=== PATIENT | female | born 1995 | race Caucasian/White ===

== ENCOUNTER 2020-06-20 18:31 | Observation (INO) | payer BC ==
[~2020-06-20] VITALS: Ht 162.6 cm; Wt 94.8 kg
[2020-06-20 19:51] LABS: URINE HCG NEGATIVE (NEG)
[2020-06-20 19:52] LABS: CLARITY,URINE SLIGHTLY CLOUDY (Clear); COLOR,URINE YELLOW (Yellow); GLUCOSE, URINE NEGATIVE (Neg); KETONES,URINE 40 mg/dl (Neg); LEUKOCYTE ESTERASE ,URINE NEGATIVE (Neg); NITRITES, URINE NEGATIVE (Neg); OCCULT BLOOD,URINE NEGATIVE (Neg); PROTEIN,URINE NEGATIVE (Neg); UROBILINOGEN,URINE 0.2 E.U/dL (0.2-1.0)
[2020-06-20 19:58] LABS: UA COLLECTION TYPE CLN CATCH MIDSTREAM
[2020-06-20 19:59] LABS: BACTERIA,URINE FEW /HPF (Neg); RBC,URINE NONE SEEN /HPF (0-2); SQUAMOUS EPITHELIAL CELL,UR MANY /LPF (FEW); WBC,URINE 0-4 /HPF (0-4)
[2020-06-20] MEDS ORDERED: normal saline 1000ml 1,000 ML IV ONE (23:25)
[2020-06-20] MEDS ORDERED: ondansetron/PF 4mg/2ml inj IV ONE (23:25)
[2020-06-20] MEDS ORDERED: morphine 10mg/ml inj. IV ONE (23:25)
[2020-06-20 23:45] LABS: EOSINOPHILS % (AUTO) 0 % (0-6); HEMOGLOBIN 10.7 g/dl (12.0-16.0); MEAN CORPUSCULAR VOLUME 71.6 FL (78-98); MONOCYTES # (AUTO) 0.3 X10'3 (0-0.9); MONOCYTES % (AUTO) 1.9 % (2-12); RED CELL DISTRIBUTION WIDTH 17.8 % (11.5-14.5); WHITE BLOOD COUNT 16.1 X10'3 (4.5-11.0)
[2020-06-20 23:47] LABS: BASOPHILS % (AUTO) 0.3 % (0-1); HEMATOCRIT 33.7 % (35.0-45.0); LYMPHOCYTES # (AUTO) 1.6 X10'3 (1.1-4.8); MEAN CORPUSCULAR HEMOGLOBIN 22.7 PG (27.0-31.0); MEAN CORPUSCULAR HGB CONC 31.7 g/dL (33.0-36.5); MEAN PLATELET VOLUME 7.5 FL (7.4-10.4); NEUTROPHILS # (AUTO) 14.1 X10'3 (1.8-7.7); NEUTROPHILS % (AUTO) 87.8 % (42-75); PLATELET COUNT 460 X10'3 (140-440)
[2020-06-20 23:52] LABS: ANION GAP 12 (8-16); BLOOD UREA NITROGEN 16 MG/DL (7-18); BUN/CREATININE RATIO 10.3 (6.6-38.0); CALCIUM 8.9 MG/DL (8.5-10.1); CHLORIDE 102 MMOL/L (99-107); CREATININE 1.55 MG/DL (0.40-0.90); GLUCOSE 124 MG/DL (70-104); POTASSIUM 4.4 MMOL/L (3.5-5.1); SODIUM 137 MMOL/L (135-145); TOTAL CARBON DIOXIDE 23.2 MMOL/L (24-32); eGFR 41 ML/MIN
[2020-06-20] MEDS ORDERED: iohexol 300mg/ml 100ml inj. ONE (23:54)
[2020-06-21] MEDS ORDERED: morphine 10mg/ml inj. IV ONE (00:40)
[2020-06-21] MEDS ORDERED: tamsulosin 0.4mg capsule PO SCH ×2 (01:25→21:00)
[2020-06-21] MEDS ORDERED: NO HOME MEDS (01:34)
[2020-06-21] MEDS ORDERED: potassium Cl 20 mEq SR tablet PO PRN ×2 (02:25)
[2020-06-21] MEDS ORDERED: ondansetron/PF 4mg/2ml inj IV PRN (02:25)
[2020-06-21] MEDS ORDERED: morphine 2 MG/ML inj. syringe IV PRN (02:25)
[2020-06-21] MEDS ORDERED: CefTRIAXone/D5W-Rocephin 1gm 50 ML IV ONE (02:25)
[2020-06-21] MEDS ORDERED: potassium Cl 40MEQ/1/2NS 520ml 520 ML IV PRN ×2 (02:25)
[2020-06-21 03:30] VITALS: BP 136/75
[2020-06-21] MEDS: normal saline 1000ml 1,000 ML IV SCH ×2 (04:04→12:25)
--- NOTE | 2020-06-21 06:31 | NUR ---
Patient in room [facility]. I have received report from SEVERIANO MARTINEZ and had the opportunity to ask questions and assume patient care.
[2020-06-21 07:00] VITALS: BP 121/62
[2020-06-21] MEDS ORDERED: K and/or MAG REPLACEMENT MC SCH (08:00)
[2020-06-21 10:57] LABS: BASOPHILS # (AUTO) 0.1 X10'3 (0-0.2); BASOPHILS % (AUTO) 0.8 % (0-1); EOSINOPHILS % (AUTO) 0.3 % (0-6); HEMATOCRIT 32.7 % (35.0-45.0); HEMOGLOBIN 10.2 g/dl (12.0-16.0); LYMPHOCYTES # (AUTO) 4.1 X10'3 (1.1-4.8); LYMPHOCYTES % (AUTO) 32.8 % (21-51); MEAN CORPUSCULAR HEMOGLOBIN 22.4 PG (27.0-31.0); MEAN CORPUSCULAR HGB CONC 31.3 g/dL (33.0-36.5); MEAN CORPUSCULAR VOLUME 71.6 FL (78-98); MEAN PLATELET VOLUME 7.3 FL (7.4-10.4); MONOCYTES # (AUTO) 0.9 X10'3 (0-0.9); MONOCYTES % (AUTO) 7.4 % (2-12); NEUTROPHILS # (AUTO) 7.4 X10'3 (1.8-7.7); NEUTROPHILS % (AUTO) 58.7 % (42-75); PLATELET COUNT 427 X10'3 (140-440); RED BLOOD COUNT 4.56 X10'6 (4.20-5.60); WHITE BLOOD COUNT 12.6 X10'3 (4.5-11.0)
[2020-06-21 11:00] VITALS: BP 131/70
[2020-06-21 11:03] LABS: ALBUMIN 3.7 G/DL (3.4-5.0); ANION GAP 9 (8-16); BLOOD UREA NITROGEN 11 MG/DL (7-18); BUN/CREATININE RATIO 9.7 (6.6-38.0); CALCIUM 8.5 MG/DL (8.5-10.1); CHLORIDE 107 MMOL/L (99-107); CREATININE 1.13 MG/DL (0.40-0.90); GLUCOSE 94 MG/DL (70-104); POTASSIUM 3.9 MMOL/L (3.5-5.1); SODIUM 142 MMOL/L (135-145); TOTAL CARBON DIOXIDE 25.8 MMOL/L (24-32); eGFR 59 ML/MIN
[2020-06-21] MEDS ORDERED: CIPR-230 PO (15:48)
[2020-06-21] MEDS ORDERED: FLO0.4C PO (15:48)
--- NOTE | 2020-06-21 17:49 | NUR ---
patient had CT of abdomen and pelvis, and ultrasound of kidneys. Seen by DR carmona is for discharge meds called into [facility]. All Dc instructions given to patient. patient DC home via private transport with family in stable condition to home.[id number]
[2020-06-22] MEDS ORDERED: CefTRIAXone/D5W-Rocephin 1gm 50 ML IV SCH (08:00)
== END 2020-06-21 17:00 | disposition home or self-care (01) ==
LOC: ER 18:32 → ED HOLD 06-21 02:21 → INTOOBSV 06-21 02:21 → SUR 3N 06-21 03:23
PROVIDERS: ADMIT Internal Medicine; ATTEND Internal Medicine
DX: N20.0 Calculus of kidney (principal); Z87.440 Personal history of urinary (tract) infections
CPT/HCPCS: 36415; 74177; 76856; 80048; 81001; 81025; 85025; 87081; 93976; 96361; 96374; 96375; 96376; 99285; G0378; J0696; J2270; J2405; J7030; Q9967